=== PATIENT | female | born 1995 | race Caucasian/White ===

== ENCOUNTER 2018-11-28 11:41 | Outpatient (REF) | payer OTHER, SELFPAY ==
--- NOTE | 2018-11-28 11:00 | PAPFT_PTH ---
PATIENT: Aileen Nolasco LOC: [facility] U#:[id number] AGE/SX: 23/F ROOM: RE11/28/[address]: Subha Servin NP : 1995 BED: DIS: 11/28/2018 SPEC #: [id number] RECD: 11/28/18 18:13 STATUS: WES ROGERS #: [id number] VIVIANE: 11/28/18 11:[address]: Subha Servin NP DEPT: [facility] Cytology RECD BY: Coby Cheng Tissues: 1 - CX/ENDOCX FOR PAP SMEARS Procedures: PAP THIN PREP/[facility] Screening Comments: [id number] (CHLAMYDIA/GC)
[2018-11-29 13:48] LABS: Chlamydia Result Negative; GC Result Negative; Specimen Description SEE COMMENTS
== END 2018-11-28 12:01 ==
LOC: LBN 11:41
PROVIDERS: Visit Provider Nurse Practitioner Women's Health
DX: Z12.4 Encounter for screening for malignant neoplasm of cervix (principal); Z11.51 Encounter for screening for human papillomavirus (HPV); Z11.3 Encounter for screening for infections with a predominantly sexual mode of transmission
CPT/HCPCS: 87491; 87591; 88142

== ENCOUNTER 2021-03-04 18:10 | Outpatient (REF) | payer BC, SELFPAY | END 2021-03-04 18:11 | disposition home or self-care (01) | LOC: LBN 18:10 | PROVIDERS: Visit Provider Nurse Practitioner Family | DX: R82.998 Other abnormal findings in urine (principal) | CPT/HCPCS: 87077; 87086; 87186 ==

== ENCOUNTER 2021-11-11 15:27 | Outpatient (REF) | payer BC, SELFPAY ==
--- NOTE | 2021-11-11 15:00 | PAPFT_PTH ---
PATIENT: Aileen Nolasco LOC: [facility] U#:[id number] AGE/SX: 26/F ROOM: RE11/11/[address]: VALENTIN Gould : 1995 BED: DIS: 11/11/2021 SPEC #: [id number] RECD: 11/11/21 17:47 STATUS: WES REPolina #: [id number] VIVIANE: 11/11/21 15:[address]: Mishel Chau DEPT: [facility] Cytology RECD BY: Coby Cheng ENTERED: 11/11/21 17:47 SP TYPE: PAPFT NOLAN DR: Unknown,Unknown Tissues: 1 - CX/ENDOCX FOR PAP SMEARS Procedures: PAP THIN PREP/[facility] Screening Comments: [id number]
== END 2021-11-11 15:28 | disposition home or self-care (01) ==
LOC: LBN 15:27
PROVIDERS: Visit Provider Nurse Practitioner Family
DX: Z12.4 Encounter for screening for malignant neoplasm of cervix (principal)
CPT/HCPCS: 88142

== ENCOUNTER 2021-11-17 04:17 | Outpatient (CLI) | payer BC, SELFPAY ==
[2021-11-17 17:26] LABS: TSH (W/Ref FT4) 1.35 uIU/mL (0.36-3.74)
== END 2021-11-17 04:18 | disposition home or self-care (01) ==
PROVIDERS: PCP Family Medicine; Visit Provider Nurse Practitioner Family
DX: N91.2 Amenorrhea, unspecified (principal)
CPT/HCPCS: 36415; 84146; 84443

== ENCOUNTER 2023-09-11 20:59 | Outpatient (CLI) | payer BC, SELFPAY ==
[2023-09-11 17:47] LABS: TSH (W/Ref FT4) 1.98 uIU/mL (0.36-3.74)
[2023-09-11 17:58] LABS: Vitamin D 25 Total 78.2 ng/mL (30-100)
[2023-09-12 18:21] LABS: FSH 65.6 mIU/mL (See Note)
== END 2023-09-11 21:00 | disposition home or self-care (01) ==
LOC: LBO 21:00
PROVIDERS: PCP Family Medicine; Visit Provider Obstetrics & Gynecology
DX: R53.83 Other fatigue (principal)
CPT/HCPCS: 36415; 82306; 83001; 84443

== ENCOUNTER 2024-01-10 11:22 | Outpatient (REF) | payer BC, SELFPAY ==
[2024-01-11 14:18] LABS: Chlamydia Result Negative (Negative); GC Result Negative (Negative)
== END 2024-01-10 11:23 | disposition home or self-care (01) ==
LOC: LBN 11:22
PROVIDERS: PCP Family Medicine; Visit Provider Obstetrics & Gynecology
DX: Z11.3 Encounter for screening for infections with a predominantly sexual mode of transmission (principal); B37.9 Candidiasis, unspecified; B96.89 Other specified bacterial agents as the cause of diseases classified elsewhere
CPT/HCPCS: 87491; 87591; 87480; 87510; 87660

== ENCOUNTER 2025-02-06 16:16 | Outpatient (REF) | payer BC, SELFPAY ==
--- NOTE | 2025-02-06 16:21 | PAPFT_PTH ---
PATIENT: Aileen Nolasco LOC: [facility] U#:[id number] AGE/SX: 29/F ROOM: RE02/06/[address]: Laura Chavez MD : 1995 BED: DIS: 02/06/2025 SPEC #: [id number] RECD: 02/06/25 17:06 STATUS: WES REPolina #: [id number] VIVIANE: 02/06/25 16:[address]: Laura Chavez DEPT: [facility] Cytology RECD BY: Coby Cheng ENTERED: 02/06/25 17:06 SP TYPE: PAPFT NOLAN DR: Houston Marques Tissues: 1 - CX/ENDOCX FOR PAP SMEARS Procedures: PAP THIN PREP/[facility] Screening Comments: [id number]
[2025-02-09 11:38] LABS: Chlamydia Result Negative (Negative); GC Result Negative (Negative)
== END 2025-02-06 16:17 | disposition home or self-care (01) ==
LOC: LBN 16:16
PROVIDERS: PCP Family Medicine; Visit Provider Obstetrics & Gynecology
DX: Z11.3 Encounter for screening for infections with a predominantly sexual mode of transmission (principal); Z12.4 Encounter for screening for malignant neoplasm of cervix
CPT/HCPCS: 87491; 87591; 88142